=== PATIENT | male | born 1960 | race Caucasian/White ===

== ENCOUNTER 2018-02-19 01:56 | Observation (INO) ==
--- NOTE | 2018-02-19 02:07 | EKG ---
[address] [place] [address] Measurements Intervals [place] Rate: 89 P: 59 NJ: 147 QRS: -23 QRSD: 109 T: 46 QT: 362 QTc: 409 Interpretive Statements SINUS RHYTHM POSSIBLE INFERIOR MYOCARDIAL INFARCTION [35 ms Q WAVE IN II/aVF], PROBABLY OLD with borderline left axis and no acute injury pattern No previous ECG available for comparison Electronically Signed On 02-19-18 08:01:04 [facility] by Sahil Rinaldi MD [id number]
[2018-02-19 02:15] LABS: BASOPHILS # (AUTO) 0.07 10*3/UL; BASOPHILS % (AUTO) 0.9 % (0-1); EOSINOPHILS # (AUTO) 0.63 10*3/UL; EOSINOPHILS % (AUTO) 8.5 % (0-8); Hematocrit [HCT] 43.9 % (42.0-52.0); Hemoglobin [HGB] 15.7 g/dL (14.0-18.0); LYMPHOCYTES # (AUTO) 2.48 10*3/uL; MEAN CORPUSCULAR HEMOGLOBIN 29.9 PG (27-31); MEAN CORPUSCULAR HGB CONC 35.8 g/dL (33-37); MEAN CORPUSCULAR VOLUME 83.6 FL (80-90); MEAN PLATELET VOLUME 11.5 FL (7.4-12.2); MONOCYTES # (AUTO) 0.75 10*3/UL (0.3-0.8); MONOCYTES % (AUTO) 10.1 % (5-15); NEUTROPHILS % (AUTO) 46.9 % (50-80); PLATELET MORPHOLOGY COMMENT NORMAL MORPHOLOGY (NORM); RBC MORPHOLOGY COMMENT NORMAL MORPHOLOGY (NORM); RED BLOOD COUNT 5.25 10^6/uL (4.70-6.10); WBC MORPHOLOGY COMMENT NORMAL MORPHOLOGY (NORM)
[2018-02-19 02:27] LABS: BLOOD UREA NITROGEN 13 mg/dL (7-22); BUN/CREATININE RATIO 16.25 (6-20); LIPASE 171 IU/L (23-300)
[2018-02-19] MEDS ORDERED: MORPHINE SULFATE 2 MG/1 ML IVP ONE (02:33)
[2018-02-19] MEDS ORDERED: ONDANSETRON 4 MG/2 ML VIAL IVP ONE (02:34)
--- NOTE | 2018-02-19 02:44 | DI ---
EXAM: CT Head Without Intravenous Contrast CLINICAL HISTORY: ITS.REASON headache Physician Notes: Tech Comments: TECHNIQUE: Axial computed tomography images of the head/brain without intravenous contrast. COMPARISON: No relevant prior studies available. FINDINGS: Brain: No hemorrhage. No edema. Ventricles: Unremarkable. No ventriculomegaly. Bones/joints: No acute fracture. Soft tissues: Unremarkable. Sinuses: No fluid levels. Mastoid air cells: Unremarkable as visualized. No mastoid effusion. IMPRESSION: No acute intracranial findings
[2018-02-19] MEDS ORDERED: Hold Metformin-See Instruction 1 EACH MIS PRN (02:51)
--- NOTE | 2018-02-19 02:58 | PDOC ---
Chest Pain HPI - General Chief Complaint: Chest Pain Stated Complaint: CHEST PAIN, HEADACHE, NAUSEA, NECK PAIN Date Seen by Provider: 02/19/18 Time Seen by Provider: 02:00 Source: Patient, EMS Exam Limitations: POSITIVE: No limitations Treatment Prior to Arrival: REPORTS: Nitroglycerin, Aspirin Nurse's Notes Reviewed & Considered: Yes EMS Report Reviewed & Considered: Verbal - History of Present Illness Initial Comments: The patient is a 57-year-old male who is brought to the emergency department by ambulance with complaints of chest pain. The patient reports that he is from [place] however is currently in [place] helping his granddaughter. He has a significant cardiac history and has had multiple stents, the last time he had stents was approximately for 5 months ago in [place]. He states that he had onset of pain at approximately 1:00 this morning. He states that this pain woke him from sleep. He subsequently called EMS. He had received 1 dose of nitroglycerin as well as aspirin prior to arrival here in the emergency department. He stated that his chest pain is improved however has not completely resolved. He also reports that for the past several days he has been having headaches and neck pain. He reports blurred vision with no numbness or weakness in his arms or legs other than some pain and weakness in his left arm. He does admit that he has not been taking his blood thinner medication for approximately a month. He also states he has not been taking his regular medications on a consistent basis. He denies any increased pain or swelling in his legs. A 12-lead EKG done per EMS was transmitted and showed a normal sinus rhythm with no acute ST segment or T-wave changes. - Patient Home Medications Home Medications: Home Medications Apixaban [Eliquis] 5 mg PO DAILY 02/19/18 Atorvastatin Calcium 80 mg PO DAILY 02/19/18 Buspirone HCl 30 mg PO DAILY 02/19/18 Carvedilol 6.25 mg PO DAILY 02/19/18 Citalopram Hydrobromide [Citalopram HBr] 40 mg PO DAILY 02/19/18 Metformin HCl 1,000 mg PO DAILY 02/19/18 Nitroglycerin 0.4 mg SUBLINGUAL PRN PRN 02/19/18 Quetiapine Fumarate 50 mg PO DAILY 02/19/18 Ramipril 10 mg PO DAILY 02/19/18 - Patient Allergies Allergies/Adverse Reactions: Allergies Allergy/AdvReac Type Severity Reaction Status Date / Time No Known Allergies Allergy Unverified 02/19/18 02:01 Past Medical History - heen HEENT History: Macular Degeneration, Hard of Hearing Cardiovascular History: Hypertension, Previous [place], Other (please comment) Additional Cardiovasular History: STENTS X 9 Respiratory History: Denies History Gastrointestinal History: Gallbladder Disease, Other (please comment) Additional Gastrointestinal History: APPY Genitourinary History: Kidney Stones Endocrine History: Type 2 Diabetes (oral) Musculoskeletal History: Arthritis, Back Pain, Back Injury Neurological History: Dementia Blood Disorders: Other (please comment) Additional Blood Disorders History: ON BLOOD THINNERS FOR STENTS Psychiatric History: Depression In Past Year Been Physically Harmed or Verbally Threatened: No History of MDRO: No Tobacco Use: Former Smoker In the Past 12 Months, Have Used or Abuse Any Substance: None Previous Surgical History: Yes Type / Date of Surgery: BACK FUSIONS, CHOLESYSTECOMY, APPENDECTOMY Significant Family History: Heart disease, Cancer, Diabetes Past Medical History Reviewed: Reviewed - No Changes ROS - Limitations ROS Limitations: No Limitations Constitution: DENIES: Fever Cardiovascular: REPORTS: Chest Pain. DENIES: Edema Respiratory: DENIES: Shortness Of Breath Neurological: REPORTS: Headache. DENIES: Tingling, Numbness, Facial Asymmetry, Dysphagia Gastrointestinal: REPORTS: Nausea, Vomitting (Associated with this headache) Musculoskeletal: DENIES: Lower Extremity Swelling Genitourinary: REPORTS: Denies Symptoms Eyes: REPORTS: Denies Symptoms ENT: REPORTS: Denies Symptoms Skin: DENIES: Rash Chest Pain PE - General Appearance General Appearance: REPORTS: Alert, Cooperative, No Acute Distress - HEENT HEENT: POSITIVE: Head Inspection Nml, Eyes Inspection Nml, Ears Inspection Nml, Nose Inspection Nml, Pharynx Inspect. Nml - Neck Neck: REPORTS: Normal Inspection. 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 Chest x-ray is unremarkable. CT of the chest shows no evidence of PE per radiologist. Lab Results Reviewed by Me: Yes CBC and BMP: 02/19/18 01:48 02/19/18 01:48 Lab Results:: Laboratory Results 02/19/18 02/19/18 02/19/18 01:48 01:48 01:48 WBC 7.45 RBC 5.25 Hgb 15.7 Hct 43.9 MCV 83.6 MCH 29.9 MCHC 35.8 RDW Std Deviation 39.0 RDW Coeff of Barry 12.8 Plt Count 289 MPV 11.5 Immature Gran % (Auto) 0.3 Neut % (Auto) 46.9 L Lymph % (Auto) 33.3 [place] % (Auto) 10.1 Eos % (Auto) 8.5 H Baso % (Auto) 0.9 Immature Gran # (Auto) 0.02 Neut # (Auto) 3.50 Lymph # (Auto) 2.48 [place] # (Auto) 0.75 Eos # (Auto) 0.63 Baso # (Auto) 0.07 WBC Morphology Comment Normal morphology Plt Morphology Comment Normal morphology RBC Morph Comment Normal morphology D-Dimer 0.72 H Sodium 141 Potassium 4.1 Chloride 106 Carbon Dioxide 24 Anion Gap 11 BUN 13 Creatinine 0.8 Estimated GFR > 60 BUN/Creatinine Ratio 16.25 Glucose 285 H Calculated Osmolality 301.0 H Calcium 9.8 Magnesium 1.8 Total Bilirubin 0.6 AST 21 ALT 44 Alkaline Phosphatase 88 CK-MB (CK-2) Troponin I C-Reactive Protein < 0.5 NT-Pro-B Natriuret Pep 86.6 Total Protein 8.5 H Albumin 5.0 H Globulin 3.5 Albumin/Globulin Ratio 1.40 Amylase 112 H Lipase 171 02/19/18 01:48 WBC RBC Hgb Hct MCV MCH MCHC RDW Std Deviation RDW Coeff of Baryr Plt Count MPV Immature Gran % (Auto) Neut % (Auto) Lymph % (Auto) [place] % (Auto) Eos % (Auto) Baso % (Auto) Immature Gran # (Auto) Neut # (Auto) Lymph # (Auto) [place] # (Auto) Eos # (Auto) Baso # (Auto) WBC Morphology Comment Plt Morphology Comment RBC Morph Comment D-Dimer Sodium Potassium Chloride Carbon Dioxide Anion Gap BUN Creatinine Estimated GFR BUN/Creatinine Ratio Glucose Calculated Osmolality Calcium Magnesium Total Bilirubin AST ALT Alkaline Phosphatase CK-MB (CK-2) 2.27 Troponin I < 0.012 C-Reactive Protein NT-Pro-B Natriuret Pep Total Protein Albumin Globulin Albumin/Globulin Ratio Amylase Lipase EKG Interpreted/Reviewed By Me:: Yes EKG Interpretation:: POSITIVE: Normal Sinus Rhythm, Normal Rate, Normal ST/T, Other (No previous EKGs available for comparison) - Patient's Progress MDM / ED Course: The patient was hypotensive on arrival with initial blood pressure of 180/110. This came down into the 160s over 90s. The patient's headache worsened and his chest pain improved. He received morphine 2 mg IV and Zofran 4 mg IV for headache and nausea. CT scan of his head was normal and chest x-ray is unremarkable. His initial EKG done shortly after arrival shows normal sinus rhythm with no acute ST segment or T-wave changes. He had already received aspirin as well as sublingual nitroglycerin per EMS prior to arrival. His blood sugar was reported as being in the 240s per EMS. His blood work reveals a normal troponin, normal CBC, normal CRP, normal BNP. His d-dimer was slightly elevated at 0.7. Subsequent CTA of the chest showed no evidence of pulmonary embolus. The patient did continue to have significant headache and received Dilaudid 1 mg IV with improvement. His blood pressure came down into the 150s over 90s. The patient's chest pain eventually subsided for the most part. The patient's initial cardiac evaluation is reassuring however he does have significant risk factors and extensive cardiac history. Because of this patient will be admitted for further monitoring and evaluation. Dr. Juarez has agreed to admit the patient. The patient's headache is most likely secondary to tension headache. The patient has had previous neck surgery. His head CT was normal and he does not have any evidence of infection or inflammation. These findings and recommendations were discussed with the patient and he is in agreement with this plan. - Consult Counseled: POSITIVE: Patient, RE: Lab Results, RE: Radiology Results, RE: DX, RE: Need for F/U Patient Care Time - Estimated PCT Patient Care Time (In Minutes): 35 Vital Signs - Recent Vital Signs Vital Signs: Vital Signs (Last 8 hours) Temp Pulse Pulse Resp BP BP Pulse Ox 02/19/18 03:20 83 16 156/96 96 02/19/18 03:00 83 18 188/106 94 02/19/18 02:45 84 15 176/104 94 02/19/18 02:33 84 20 169/96 93 02/19/18 02:18 97.2 F 91 20 180/110 95 02/19/18 02:15 89 18 163/100 95 02/19/18 02:08 88 16 164/96 94 - VS Reviewed Vital Signs Reviewed: Yes Discharge Clinical Impression: Chest pain, Diabetes type 2, uncontrolled, Headache, Hypertension, Coronary artery disease Discharge Disposition: Admit to Observation Condition: Fair Follow Up With: NONE,NONE [Primary Care Provider] -
[2018-02-19] MEDS ORDERED: HYDROmorphone 2 MG/1 ML IVP ONE (03:00)
--- NOTE | 2018-02-19 03:40 | DI ---
EXAM: CT Angiography Chest Without And With Intravenous Contrast CLINICAL HISTORY: ITS.REASON chest pain, elevated d-dimer Physician Notes: Tech Comments: TECHNIQUE: Axial computed tomographic angiography images of the chest without and with intravenous contrast using pulmonary embolism protocol. 3D reconstructed images were created and reviewed. COMPARISON: No relevant prior studies available. FINDINGS: Pulmonary arteries: Unremarkable. No pulmonary embolism. Aorta: No acute findings. No thoracic aortic aneurysm. Lungs: Unremarkable. No mass. No consolidation. Pleural space: Unremarkable. No significant effusion. No pneumothorax. Heart: Unremarkable. No cardiomegaly. No significant pericardial effusion. No evidence of RV dysfunction. Bones/joints: No acute fracture. No dislocation. Soft tissues: Unremarkable. Lymph nodes: Unremarkable. No enlarged lymph nodes. IMPRESSION: Normal chest CTA. No pulmonary embolism.
--- NOTE | 2018-02-19 04:23 | PDOC ---
HPI - History of Present Illness History of Present Illness: This very nice 57-year-old gentleman with the history of coronary artery disease he is from [place]. And his granddaughter and [place]. 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 So far troponins are negative but he was complaining of chest pain this morning which subsided the after 2 sublingual nitros. He is scheduled for a stress test later today what brought him to the ER was chest pain with some nausea Past Medical History Medical History: Coronary artery disease, MIs, multiple stents 5 months ago and [place], depression Tobacco Use: Former Smoker In the Past 12 Months, Have Used or Abuse Any of the Following Substance: None Medication / Allergies Home Medications: Home Medications Medication Instructions Recorded Confirmed Type Apixaban [Eliquis] 5 mg PO DAILY 02/19/18 02/19/18 History Atorvastatin Calcium 80 mg PO DAILY 02/19/18 02/19/18 History Buspirone HCl 30 mg PO DAILY 02/19/18 02/19/18 History Carvedilol 6.25 mg PO DAILY 02/19/18 02/19/18 History Citalopram Hydrobromide 40 mg PO DAILY 02/19/18 02/19/18 History [Citalopram HBr] Metformin HCl 1,000 mg PO DAILY 02/19/18 02/19/18 History Nitroglycerin 0.4 mg SUBLINGUAL PRN PRN 02/19/18 02/19/18 History Quetiapine Fumarate 50 mg PO DAILY 02/19/18 02/19/18 History Ramipril 10 mg PO DAILY 02/19/18 02/19/18 History Allergies/Adverse Reactions: Allergies Allergy/AdvReac Type Severity Reaction Status Date / Time No Known Allergies Allergy Unverified 02/19/18 02:01 Review of Systems - Review of Systems All Systems: Reviewed & No Additional Complaints Except as Stated - Respiratory Respiratory: DENIES: Negative System Review, Cough, Sputum, Dyspnea At Rest, Dyspnea with Exertion, Pleuritic Pain, Hemoptysis, Wheezing, Other, See HPI - Cardiovascular Cardiovascular: REPORTS: Chest Pain - Gastrointestinal Gastrointestinal / Abdominal: REPORTS: Nausea. DENIES: Vomiting, Diarrhea, Constipation, Bloody Stool, Regurgitation, Bloating - Neurological Neurologic: DENIES: Negative System Review, Headache, Numbness/Paresthesia, Tremors, Weakness, Seizures, Head Trauma, LOC, Dizziness, Confusion, Memory Loss, Difficulty Walking, Incoordination, Other, See HPI Exam - Vitals Vital Signs: Vital Signs Temperature 97.2 F Temperature Source Temporal Artery Scan Pulse Rate [Pulse Oximeter] 91 Pulse Rate 77 Respiratory Rate 18 Blood Pressure [Left Arm] 180/110 Blood Pressure 163/92 Pulse Ox 96 Oxygen Delivery Method Room Air Height 5 ft 10 in Weight 185 lb - General General Appearance: No Acute Distress, Cooperative - Head Head Exam: Normal Inspection, Normocephalic, Atraumatic - Eye Eye Exam: POSITIVE: Normal Appearance, PERRL, EOMI, No Scleral Icterus - Respiratory Respiratory Exam: POSITIVE: Clear to Auscultation - Bilaterally, Breathing Non Labored, Normal To Percussion, Normal to Percussion and Palpation - Cardiovascular Cardiovascular Exam: POSITIVE: RRR, No Murmur, No Clicks, No Gallops, No Rubs, PMI Non-Displaced - GI/Abdominal GI/Abdominal Exam: POSITIVE: Normal Bowel Sounds, Non Tender, Non Distended, Soft, No Masses, No Hepatomegaly, No Splenomegaly, No Organomegaly - Extremities Extremities Exam: POSITIVE: No Clubbing Present, No Edema Present, No Cyanosis Present - Neurological Neurological Exam: POSITIVE: Alert, Oriented x 3, No Facial Droop, Speech Intact / Clear - Psychiatric Psychiatric Exam: POSITIVE: Normal Affect, Normal Mood Results - Labs CBC and BMP: 02/19/18 01:48 02/19/18 01:48 Assessment and Plan - Patient Problems (1) Chest pain Current Visit: Yes Status: Acute Comment: Sublingual nitroglycerin 2 chest pain resolved scheduled for stress test later today continue home meds Code(s): R07.9 - Chest pain, unspecified (2) Coronary artery disease Current Visit: Yes Status: Acute Code(s): I25.10 - Atherosclerotic heart disease of hughes coronary artery without angina pectoris (3) Diabetes type 2, uncontrolled Current Visit: Yes Status: Acute Comment: Check sugars before meals and at bedtime sliding scale Code(s): E11.65 - Type 2 diabetes mellitus with hyperglycemia (4) Hypertension Current Visit: Yes Status: Acute Comment: Stable at present time Code(s): I10 - Essential (primary) hypertension
[2018-02-19] MEDS ORDERED: CALCIUM CARBONATE 500 MG (TUMS) CHEWABLE TABLET PO PRN (05:35)
[2018-02-19] MEDS ORDERED: LIDOCAINE W/ SODIUM BICARB 0.5 ML SYR SUBD PRN (05:35)
--- NOTE | 2018-02-19 07:17 | DI ---
XR CXR 1VW 02/19/2018 2:04 AM HISTORY: [facility] ^Chest Pain Comparison: None. Findings: A single portable frontal view of the chest is submitted. Images demonstrate hypoinflation without focal consolidation. There is no large pneumothorax or pleur al effusion. The cardiomediastinal silhouette is within normal limits for technique. The osseous stru ctures are grossly unremarkable. Impression: No radiographic evidence of acute cardiopulmonary disease.
[2018-02-19] MEDS ORDERED: NITROGLYCERIN 0.4 MG SL TAB (BOTTLE OF 3) SL ONE ×2 (08:10→08:17)
--- NOTE | 2018-02-19 08:21 | EKG ---
[address] [place] [address] Measurements Intervals [place] Rate: 73 P: 55 ME: 137 QRS: -9 QRSD: 113 T: 16 QT: 396 QTc: 422 Interpretive Statements SINUS RHYTHM MODERATE INTRAVENTRICULAR CONDUCTION DELAY Compared to ECG 02/19/2018 02:04:08 Intraventricular conduction delay now present Myocardial infarct finding no longer present Electronically Signed On 02-19-18 09:09:56 [facility] by Jed Womakc [email or web address]
[2018-02-19] MEDS ORDERED: ACETAMINOPHEN 500 MG TABLET PO ONE (08:34)
[2018-02-19] MEDS ORDERED: NITROGLYCERIN 0.4 MG SL TAB (BOTTLE OF 3) SL PRN (08:45)
[2018-02-19] MEDS ORDERED: busPIRone HCL 5 MG TABLET PO SCH (09:00)
[2018-02-19] MEDS ORDERED: QUEtiapine Tab 25 MG TAB PO SCH (09:00)
[2018-02-19] MEDS ORDERED: CARVEDILOL 6.25 MG TABLET PO SCH (09:00)
[2018-02-19] MEDS ORDERED: metFORMIN 500 MG TABLET PO SCH (09:00)
[2018-02-19] MEDS: QUETIAPINE 50 MG PO SCH ×2 (09:02→21:16)
[2018-02-19] MEDS: RAMIPRIL 10 MG CAPSULE PO SCH (09:02)
[2018-02-19] MEDS: BUSPIRONE 15 MG PO SCH ×2 (09:02→21:16)
[2018-02-19] MEDS: CITALOPRAM 20 MG TABLET PO SCH (09:02)
[2018-02-19] MEDS: Apixaban 5 MG TABLET PO SCH (09:03)
[2018-02-19] MEDS: CARVEDILOL 6.25 MG TABLET PO SCH ×2 (09:03→21:15)
[2018-02-19] MEDS ORDERED: LORazepam 2 MG/1 ML VIAL IVP ONE (09:49)
[2018-02-19] MEDS: metFORMIN 500 MG TABLET PO SCH ×2 (10:52→23:06)
[2018-02-19] MEDS ORDERED: MORPHINE SULFATE 2 MG/1 ML IVP PRN (19:20)
[2018-02-19] MEDS: HYDROmorphone 2 MG/1 ML IVP PRN ×2 (20:40→23:24)
[2018-02-19] MEDS ORDERED: ATORVASTATIN 40 MG TABLET PO SCH (21:00)
[2018-02-19 21:01] LABS: AMPHETAMINE SCREEN NEGATIVE (NEG); CANNABINOID SCREEN,URINE POSITIVE (NEG); COCAINE SCREEN NEGATIVE (NEG); METHADONE URINE SCREEN NEGATIVE (NEG); METHAMPHETAMINES SCREEN,URINE NEGATIVE (NEG); OPIATE SCREEN,URINE POSITIVE (NEG); URINE SAMPLE TYPE VOIDED SPECIMEN; URINE SPECIFIC GRAVITY - MAN 1.039
--- NOTE | 2018-02-19 21:09 | DI ---
EXAM: XR Soft Tissue Neck CLINICAL HISTORY: ITS.REASON neck pain Physician Notes: Tech Comments: TECHNIQUE: Frontal and lateral views of the soft tissues of the neck. COMPARISON: No relevant prior studies available. FINDINGS: Airway: Unremarkable. No abnormal narrowing. Bones/joints: Bony bridging across the C5-6 and C6-7 disc spaces. No acute or healing fracture or malalignment. No unusual lytic or sclerotic lesions of bone. Remaining bones, hepatic lesions, and soft tissues are unremarkable. Soft tissues: Prevertebral soft tissues are unremarkable. Other findings: Multilevel facet arthrosis. IMPRESSION: C5-C7 ankylosis. No acute osseous abnormality.
[2018-02-20 05:06] LABS: CHOL/HDL RATIO 5.48 RATIO (0-4.0)
[2018-02-20] MEDS: HYDROmorphone 2 MG/1 ML IVP PRN ×3 (06:05→15:23)
--- NOTE | 2018-02-20 09:20 | STRESSTEST ---
[facility] Interpretive Statements Patient had Lexiscan stress test per protocol, Baseline BP was 130/70, heart rate was 66, EKG showed Q waves in III, post injection patient did have some flushing and shortness of breath that resolved in the recovery phase, maximum BP was 140/82, maximum heart rate was 93. No new EKG changes. had some isloated ventricular ectopics., Conclusion No new changes noted on the EKG part of lexiscan stress test. await nuclear scan results. [email or web address]
[2018-02-20] MEDS: CITALOPRAM 20 MG TABLET PO SCH (10:09)
[2018-02-20] MEDS: Apixaban 5 MG TABLET PO SCH (10:10)
[2018-02-20] MEDS: CARVEDILOL 6.25 MG TABLET PO SCH (10:10)
[2018-02-20] MEDS: RAMIPRIL 10 MG CAPSULE PO SCH (10:11)
[2018-02-20] MEDS: QUETIAPINE 50 MG PO SCH (10:14)
[2018-02-20] MEDS: BUSPIRONE 15 MG PO SCH (10:14)
[2018-02-20] MEDS ORDERED: oxyCODONE/APAP 7.5/325 Tab 1 TAB TAB PO PRN (10:30)
--- NOTE | 2018-02-20 12:51 | DI ---
2 DAY LEXISCAN STRESS & REST MYOCARDIAL PERFUSION SCANS, 02/19/2018 12:00 PM : History: [facility] [place] [facility] ^chest pain Comparison: None at this facility. The patient was stressed by Dr. Brown. The standard Lexiscan protocol was used. Please see the Doctor's report. Stress scans were performed on 02/20/2018; the resting scans were performed on 02/19/2018. At the designated time following commencement of stress testing, 36.2 mCi of Tc-99m Sestamibi was inj ected IV. Stress gated tomograms were acquired within one hour of the injection. For the resting scans, 3.5 mCi was injected IV and resting gated tomograms were acquired in a similar fashion. Quantitative and qualitative analyses were performed. Quantitative analysis was performed with the [facility] [id number] protocols. Very low dose limited CT scans of the chest are o btained through the level of the heart for attenuation correction of the stress and rest cardiac SPEC T data. Attenuation corrected and non-attenuation corrected scans were processed for review, and the attenuation corrected scans were used for final interpretation of this study. Gating information reveals 100 % accepted beats. There is no significant breast attenuation. There is no significant diaphragmatic attenuation. There is no significant gut cross talk. There is a small mild area of partial reversibility involving the distal anterior wall and apex. Summ ed Stress Score (SSS) is 6 and Summed Difference Score (SDS) is 5. There is mild global hypokinesis t hat is worse on stress than rest. There is no significant wall thickening. Stress and rest left ventr icular ejection fraction (LVEF) are 57 % and 71 %, respectively. Transient ischemic dilatation ratio (TID) is 1.34, with a normal range up to 1.2 for patients stressed with the Jaren protocol and up to 1.4 for patients stressed with the Lexiscan protocol. The very low dose CT scans through the level of the heart demonstrate dense calcifications in the dis tribution of the left main, left anterior descending, and left circumflex arteries, as well as the di stal right coronary artery. There are multiple calcified right hilar lymph nodes. Heart size is sylvia l without pericardial effusion. There is a calcified granuloma in the superior basal segment of the r ight lower lobe. The lungs are otherwise clear. There is a calcified splenic granuloma. Captured uppe r abdominal solid organs and hollow viscera are otherwise unremarkable. There are degenerative change s of the spine without aggressive osseous lesion. Impression: 1. There is a small mild area of partial reversibility involving the distal anterior wall and apex. 2. There is mild global hypokinesis that is worse on stress than rest. 3. Stress and rest LVEF are 57 % and 71 %, respectively. 4. TID ratio is 1.34. 5. Dense coronary artery calcifications are noted in the distribution of the left main, left anterior descending, and left circumflex arteries, as well as the distal right coronary artery.
--- NOTE | 2018-02-20 14:25 | DCSUMMARY ---
Hospitalization Summary Admit Date: 02/19/2018 Discharge Date: 02/20/18 Hospital Course: Transfer diagnoses 1. Episode of chest pain resolved. 2. Abnormal stress test, there is a small mild area of partial reversibility involving the distal anterior wall and apex. 3. There is mild global hypokinesis which is worse on stress than rest. 4. Dense coronary artery calcifications noted in the distribution of the left main, left anterior descending and left circumflex arteries as well as the d istal right coronary artery 5. Diabetes 6. Hypertension 7. History of depression 8. C5-C7 ankylosis Hospital course This is a 57 years old male with medical history significant for history of cor onary artery disease with previous multiple stents, last time he had an FL was 5 months ago, history of diabetes, hypertension, he is from [place] and he's been here in [place] for about 6 weeks and in [place] for about 10 days helping his daughter, he said he has not been taking some of his medication for more than a month although he did not give a clear reason why, he came in because of episode of chest pain that started yesterday felt in the anterior chest reminded him of the pain that he had before he was admitted to the hospital had repeated enzymes were negative. Had a CTA of the chest which was negative for PE had a CT of the head which was also negative. He had a stress test which showed small mild area of partial reversibility involving the distal anterior wall and apex. There is also mild global hypokinesis which is worse on stress than rest. There is dense coronary artery calcification noted in the distribution of the left main, left anterior descending the left circumflex arteries as well as the distal right coronary artery. Because of the findings I did speak with Dr. Rodriguez who suggested 2 options either transfer or medical treatment I spoke with the patient he seems to be interested in transfer to have an angiogram done. And he said he will stick to taking his medication this time. So the patient will be transferred for an angiogram. Laboratory Results 02/19/18 02/19/18 02/19/18 17:30 20:20 23:34 Troponin I < 0.012 < 0.012 Triglycerides Cholesterol LDL Cholesterol, Calc VLDL Cholesterol HDL Cholesterol Cholesterol/HDL Ratio TSH Free T4 Ur Collection Type Voided specimen U Specif Grav (Refrac) 1.039 Urine Opiates Screen Positive H Ur Buprenorphine Negative Ur Oxycodone Screen Negative Urine Methadone Screen Negative Ur Propoxyphene Screen Negative Barbiturate Screen Negative U Tricyclic Antidepress Negative Phencyclidine Screen Negative Amphetamines Screen Negative U Methamphetamines Scrn Negative Benzodiazepines Screen Positive H Cocaine Screen Negative U Marijuana (THC) Screen Positive H 02/20/18 02/20/18 04:25 04:25 Troponin I Triglycerides 204 H Cholesterol 137 LDL Cholesterol, Calc 71.200 VLDL Cholesterol 40 HDL Cholesterol 25 L Cholesterol/HDL Ratio 5.48 H TSH 2.51 Free T4 0.99 Ur Collection Type U Specif Grav (Refrac) Urine Opiates Screen Ur Buprenorphine Ur Oxycodone Screen Urine Methadone Screen Ur Propoxyphene Screen Barbiturate Screen U Tricyclic Antidepress Phencyclidine Screen Amphetamines Screen U Methamphetamines Scrn Benzodiazepines Screen Cocaine Screen U Marijuana (THC) Screen Transfer instruction Diet diabetic Activity as started Medications Active Medications Apixaban (Eliquis) 5 mg PO DAILY [facility] Last Admin: 02/20/18 10:10 Dose: 5 mg Documented by: Atorvastatin Calcium (Lipitor) 80 mg PO BEDTIME [facility] Last Admin: 02/19/18 21:15 Dose: 80 mg Documented by: Calcium Carbonate (Tums) 1 - 2 tab PO QID PRN PRN Reason: Heartburn Carvedilol (Coreg) 6.25 mg PO BID [facility] Last Admin: 02/20/18 10:10 Dose: 6.25 mg Documented by: Citalopram Hydrobromide (Celexa) 40 mg PO DAILY [facility] Last Admin: 02/20/18 10:09 Dose: 40 mg Documented by: Hydromorphone HCl (Dilaudid Inj) 1 mg IVP Q3H PRN PRN Reason: Pain Last Admin: 02/20/18 10:08 Dose: 1 mg Documented by: Sodium Chloride (Normal Saline 0.9%) 25 mls @ 200 mls/hr IV .Post Infusion PRN PRN Reason: Flush Lidocaine HCl (Lidocaine Buffered Inj) 0.5 ml SUBD ONCE PRN PRN Reason: IV Starts Morphine Sulfate (Morphine Inj) 1 mg IVP Q2H PRN PRN Reason: Pain Last Admin: 02/19/18 19:36 Dose: 1 mg Documented by: Nitroglycerin (Nitrostat Sl 0.4mg Tab) 1 tab SL Q5M PRN PRN Reason: CREST PAIN Own Med : Buspirone (15 Mg Tablet) 1 PO BID [facility] Last Admin: 02/20/18 10:14 Dose: 1 Documented by: Own Med : Quetiapine (50 Mg Tablet) 1 PO BID [facility] Last Admin: 02/20/18 10:14 Dose: 1 Documented by: Oxycodone/Acetaminophen (Percocet 7.5/325 Tab) 1 tab PO Q4H PRN PRN Reason: Pain Last Admin: 02/20/18 13:53 Dose: 1 tab Documented by: Ramipril (Altace) 10 mg PO DAILY [facility] Last Admin: 02/20/18 10:11 Dose: 10 mg Documented by: Follow-up per [facility] [place] post discharge Condition at transfer was stable for transfer Exam - Vitals Vital Signs: Vital Signs Temperature 97.6 F Temperature Source Temporal Artery Scan Pulse Rate [Pulse Oximeter] 65 Pulse Rate 71 Respiratory Rate 12 Blood Pressure [Right Arm] 120/70 Blood Pressure [Left Arm] 140/78 Blood Pressure 133/93 Pulse Ox 97 Oxygen Delivery Method Room Air Height 5 ft 10 in Weight 187 lb - General General Appearance: No Acute Distress, Cooperative - Head Head Exam: Normal Inspection - Eye Eye Exam: POSITIVE: Normal Appearance - ENT ENT Exam: POSITIVE: Normal Exam - Neck Neck Exam: Normal Inspection - Respiratory Respiratory Exam: POSITIVE: Clear to Auscultation - Bilaterally - Cardiovascular Cardiovascular Exam: POSITIVE: RRR - GI/Abdominal GI/Abdominal Exam: POSITIVE: Normal Bowel Sounds, Non Tender, Non Distended, Soft, No Organomegaly - Rectal Rectal Exam: POSITIVE: Deferred - External Exam: POSITIVE: Deferred Exam: POSITIVE: Deferred - Extremities Extremities Exam: POSITIVE: Normal Inspection - Back Back Exam: POSITIVE: Normal Inspection - Neurological Neurological Exam: POSITIVE: Alert, Oriented x 3, CN II-XII Intact, No Facial Droop, Speech Intact / Clear, Moves All Extremities Equally - Psychiatric Psychiatric Exam: POSITIVE: Normal Affect - Integumentary Integumentary Exam: POSITIVE: Normal Color
== END 2018-02-20 15:30 | disposition short-term general hospital (02) ==
LOC: ER 01:56 → MED/SURG 01:56
PROVIDERS: ADMIT Internal Medicine; ATTEND Internal Medicine